=== PATIENT | male | born 1950 ===

== ENCOUNTER 2017-10-10 10:52 | Observation (INO) | payer OTHER, SELFPAY ==
[2017-10-10 10:53] VITALS: BMI 27.0
[2017-10-10] MEDS ORDERED: Sodium Chloride 0.9% 1,000 ML IV STA (11:19)
--- NOTE | 2017-10-10 11:28 | ED PDOC ---
HPI: General Adult Time Seen by Provider: 10/10/17 11:08 Chief Complaint (Nursing): Flu-like Symptoms Chief Complaint (Provider): Flu-like Symptoms History Per: Patient History/Exam Limitations: no limitations Onset/Duration Of Symptoms: Days Current Symptoms Are (Timing): Still Present Additional Complaint(s): 67 year old male presents to the emergency department with a complaint of a chest pain only when he coughs, sputum (white), fever, shortness of breath at night, congestion, runny nose, fever, sore throat, and body aches x2 days. Denies nausea, vomiting, diarrhea. Patient was diagnosed with Brugada syndrome before he had pacemaker placed. PMD: Dr. Alejandra SORENSON Past Medical History Reviewed: Historical Data, Nursing Documentation, Vital Signs Vital Signs: Last Vital Signs Temp 98 F 10/10/17 11:09 Pulse 86 10/10/17 11:09 Resp 18 10/10/17 11:09 BP 126/69 10/10/17 11:09 Pulse Ox 98 10/10/17 13:26 - Medical History PMH: Arthritis, Gastritis, Hypercholesterolemia, Chronic Kidney Disease (CKD), Rheumatoid Arthritis Denies: HIV, Malignancy (denies prostate ca) Other PMH: brugada syndrome - Surgical History Surgical History: Cholecystectomy - Family History Family History: States: Unknown Family Hx - Social History Current smoker - smoking cessation education provided: No Alcohol: None Drugs: Denies - Home Medications Home Medications: Ambulatory Orders Medication Instructions Recorded Finasteride [Proscar] 5 mg PO DAILY #0 tab 10/15/15 Ciprofloxacin HCl [Cipro] 500 mg PO BID #28 tablet 11/21/16 Lactobacillus Acidophilus [Bacid 1 cap PO BID #30 cap 11/21/16 Acidophilus] Tamsulosin [Flomax] 0.4 mg PO BID #60 cap 11/21/16 Phenazopyridine [Pyridium] 200 mg PO TID PRN #6 tab 04/20/17 - Allergies Allergies/Adverse Reactions: Allergies Allergy/AdvReac Type Severity Reaction Status Date / Time No Known Allergies Allergy Verified 10/01/14 13:25 Review of Systems ROS Statement: Except As Marked, All Systems Reviewed And Found Negative (As per HPI, otherwise negative) Constitutional: Positive for: Fever, Other (body aches) ENT: Positive for: Nose Discharge, Nose Congestion, Throat Pain Cardiovascular: Positive for: Chest Pain (due to cough) Respiratory: Positive for: Cough, Shortness of Breath (at night), Sputum (white) Gastrointestinal: Negative for: Nausea, Vomiting, Abdominal Pain, Diarrhea Physical Exam - Reviewed Nursing Documentation Reviewed: Yes Vital Signs Reviewed: Yes - Physical Exam Appears: Positive for: Non-toxic, No Acute Distress Head Exam: Positive for: NORMAL INSPECTION Skin: Positive for: Normal Color, Warm, Dry Eye Exam: Positive for: Normal appearance, EOMI, PERRL ENT: Positive for: Nasal Congestion Neck: Positive for: Normal, Painless ROM, Supple Cardiovascular/Chest: Positive for: Regular Rate, Rhythm, Chest Non Tender, Other (Pacemaker in place). Negative for: Murmur Respiratory: Positive for: Normal Breath Sounds. Negative for: Accessory Muscle Use, Wheezing, Respiratory Distress Gastrointestinal/Abdominal: Positive for: Normal Exam, Soft. Negative for: Tenderness Back: Positive for: Normal Inspection. Negative for: L CVA Tenderness, R CVA Tenderness Extremity: Positive for: Normal ROM. Negative for: Tenderness, Pedal Edema Neurologic/Psych: Positive for: Alert, Oriented (x3) - Laboratory Results Result Diagrams: 10/10/17 11:30 10/10/17 11:30 Interpretation Of Abn Labs: no acute - ECG ECG: Positive for: Interpreted By Me, Viewed By Me ECG Rhythm: Positive for: Normal QRS, Sinus Rhythm, Nonspecific Changes Interpretation Of Abn EKG: Similar old 11/19/16 O2 Sat by Pulse Oximetry: 98 (RA) Pulse Ox Interpretation: Normal - Radiology X-Ray: Interpreted by Me, Viewed By Me X-Ray Interpretation: No Acute Disease - Progress ED Course And Treament: 1151: Spoke with Dr. Cagle. He saw EKG and made aware of presentation. State not a code heart. Do further eval and tele obs. 1359: Stable. Spoke with Dr. Johnson. will admit tele obs. Pt. pain free. Medical Decision Making Medical Decision Making: Time: 1119 Initial Impression: Flu-like symptoms Initial Plan: --EKG --CMP --Troponin I --CBC w. diff --Chest Portable --Toradol 15 mg IVP --Sodium Chloride 1L IV --Influenza A B --Reevaluation Time: 1130 --Negative Influenza A B Scribe Attestation: Documented by Mayte Frost, acting as a scribe for Jesse Kauffman MD. Provider Scribe Attestation: All medical record entries made by the Scribe were at my direction and personally dictated by me. I have reviewed the chart and agree that the record accurately reflects my personal performance of the history, physical exam, medical decision making, and the department course for this patient. I have also personally directed, reviewed, and agree with the discharge instructions and disposition. Disposition - Clinical Impression Clinical Impression: Acute electrocardiogram changes, URI (upper respiratory infection) - Patient ED Disposition Is Patient to be Admitted: Yes Counseled Patient/Family Regarding: Studies Performed, Diagnosis - Disposition Disposition Time: 14:00 Condition: FAIR - Pt Status Changed To: Hospital Disposition Of: Observation - POA Present On Arrival: None
[2017-10-10 12:12] LABS: ALB/GLOB RATIO 1.4 (1.0-2.1); ALBUMIN 4.2 g/dL (3.5-5.0); ALT/SGPT 44 U/L (21-72); AST/SGOT 33 U/L (17-59); BLOOD UREA NITROGEN 13 mg/dl (9-20); CALCIUM 9.4 mg/dL (8.4-10.2); GFR AFRICAN-AMERICAN > 60; GFR NON-AFRICAN AMERICAN > 60
[2017-10-10 12:21] LABS: BASO % 0.7 % (0.0-2.0); EOS # 0.2 K/uL (0.0-0.7); HEMOGLOBIN 14.1 g/dL (12.0-18.0); LYMPH # 0.6 K/uL (1.0-4.3); LYMPH % 8.5 % (20.0-40.0); MEAN CELL VOLUME 96.9 fl (80.0-94.0); MEAN CORPUSCULAR HEMOGLOBIN 32.1 pg (27.0-31.0); MEAN CORPUSCULAR HGB CONC 33.1 g/dL (33.0-37.0); MEAN PLATELET VOLUME 10.1 fl (7.2-11.7); MONO # 0.6 K/uL (0.0-0.8); MONO % 8.3 % (0.0-10.0); NEUT # 5.5 K/uL (1.8-7.0); NEUT % 79.5 % (50.0-75.0); NRBC % 0.1 % (0.0-0.0); PLATELET COUNT 154 K/uL (130-400); RBC 4.39 Mil/uL (4.40-5.90); RED CELL DISTRIBUTION WIDTH 12.8 % (11.5-14.5); WHITE BLOOD COUNT 6.9 K/uL (4.8-10.8)
[2017-10-10 13:23] LABS: BANDS 4 % (0-2); EOSINOPHIL 6 % (0-7); LYMPHOCYTE 15 % (20-50); MONOCYTE 10 % (0-10); NEUTROPHIL 65 % (42-75); TOTAL CELLS COUNTED 100
[2017-10-10 13:24] LABS: PLATELET ESTIMATE NORMAL (NORMAL)
[2017-10-10] MEDS ORDERED: Aspirin 325 mg EC Tablets PO ONE (14:36)
--- NOTE | 2017-10-10 15:17 | RAD ---
HISTORY: dyspnea COMPARISON: Comparison chest dated 10/13/2015 FINDINGS: LUNGS: Mild bibasilar atelectasis PLEURA: No significant pleural effusion identified, no pneumothorax apparent. CARDIOVASCULAR: Interval placement single lead pacemaker/ defibrillator. OSSEOUS STRUCTURES: No significant abnormalities. VISUALIZED UPPER ABDOMEN: Normal. OTHER FINDINGS: None. IMPRESSION: Mild bibasilar atelectasis Interval placement single lead pacemaker/defibrillator
--- NOTE | 2017-10-10 15:18 | CP.PCM.HP ---
History of Present Illness - History of Present Illness History of Present Illness: 67 yo male with history of Brugada syndrome (internal defibrillator inserted last year) brought by daughter because of cough productive with white sputum associated with chest pain and body malaise since yesterday. Admitted feeling febrile yesterday Present on Admission - Present on Admission Any Indicators Present on Admission: No History of DVT/PE: No History of Uncontrolled Diabetes: No Urinary Catheter: No Decubitus Ulcer Present: No Review of Systems - Review of Systems All systems: reviewed and no additional remarkable complaints except (aside from those mentioned above, 12 point system review were negative by me) Past Patient History - Infectious Disease Hx of Infectious Diseases: None - Tetanus Immunizations Tetanus Immunization: Unknown - Past Medical History & Family History Past Medical History?: Yes - Past Social History Smoking Status: Never Smoked Alcohol: None Drugs: Denies Home Situation {Lives}: With Family - CARDIAC Hx Cardia Arrhythmia: Yes Hx Hypercholesterolemia: Yes Hx Internal Defibrillator: Yes - PULMONARY Hx Respiratory Disorders: No - NEUROLOGICAL Hx Neurological Disorder: No - HEENT Hx HEENT Problems: No Other/Comment: Use Eyeglasses - RENAL Hx Chronic Kidney Disease: No - ENDOCRINE/METABOLIC Hx Endocrine Disorders: No - HEMATOLOGICAL/ONCOLOGICAL Hx Human Immunodeficiency Virus (HIV): No - INTEGUMENTARY Hx Dermatological Problems: No Other/Comment: hives notes to the right upper head - MUSCULOSKELETAL/RHEUMATOLOGICAL Hx Arthritis: Yes Hx Rheumatoid Arthritis: Yes - GASTROINTESTINAL Hx Gastritis: Yes - GENITOURINARY/GYNECOLOGICAL Hx Genitourinary Disorders: Yes (BPH, UTIs) Hx Prostate Problems: Yes - PSYCHIATRIC Hx Psychophysiologic Disorder: No Hx Substance Use: No - SURGICAL HISTORY Hx Surgeries: Yes Hx Cholecystectomy: Yes - ANESTHESIA Hx Anesthesia: Yes Hx Anesthesia Reactions: No Hx Malignant Hyperthermia: No Meds Allergies/Adverse Reactions: Allergies Allergy/AdvReac Type Severity Reaction Status Date / Time No Known Allergies Allergy Verified 10/01/14 13:25 Physical Exam - Constitutional Appears: No Acute Distress - Head Exam Head Exam: ATRAUMATIC - Eye Exam Eye Exam: absent: Scleral icterus - ENT Exam ENT Exam: Mucous Membranes Moist - Neck Exam Neck exam: Negative for: Meningismus - Respiratory Exam Respiratory Exam: absent: Rhonchi, Wheezes, Respiratory Distress - Cardiovascular Exam Cardiovascular Exam: REGULAR RHYTHM, +S1, +S2 - GI/Abdominal Exam GI & Abdominal Exam: Soft. absent: Tenderness - Rectal Exam Rectal Exam: Deferred - Extremities Exam Extremities exam: Positive for: pedal pulses present. Negative for: pedal edema - Back Exam Back exam: absent: tenderness - Neurological Exam Neurological exam: Alert, Oriented x3 - Psychiatric Exam Psychiatric exam: Normal Affect - Skin Skin Exam: Dry, Intact Results - Vital Signs Recent Vital Signs: Last Vital Signs Temp 98 F 10/10/17 11:09 Pulse 84 10/10/17 14:31 Resp 18 10/10/17 14:31 BP 128/75 10/10/17 14:31 Pulse Ox 98 10/10/17 14:31 - Labs Result Diagrams: 10/10/17 11:30 10/10/17 11:30 Labs: Laboratory Results - last 24 hr 10/10/17 10/10/17 10/10/17 11:30 11:30 11:30 WBC 6.9 RBC 4.39 L Hgb 14.1 Hct 42.6 MCV 96.9 H D MCH 32.1 H MCHC 33.1 RDW 12.8 Plt Count 154 MPV 10.1 Neut % (Auto) 79.5 H Lymph % (Auto) 8.5 L [place] % (Auto) 8.3 Eos % (Auto) 3.0 Baso % (Auto) 0.7 Neut # 5.5 Lymph # 0.6 L [place] # 0.6 Eos # 0.2 Baso # 0.0 Neutrophils % (Manual) 65 Band Neutrophils % 4 H Lymphocytes % (Manual) 15 L Monocytes % (Manual) 10 Eosinophils % (Manual) 6 Platelet Estimate Normal Sodium 143 Potassium 4.1 Chloride 105 Carbon Dioxide 24 Anion Gap 18 BUN 13 Creatinine 0.7 L Est GFR ( Amer) > 60 Est GFR (Non-Af Amer) > 60 Random Glucose 108 Calcium 9.4 Total Bilirubin 1.0 AST 33 ALT 44 Alkaline Phosphatase 76 Troponin I < 0.0120 Total Protein 7.2 Albumin 4.2 Globulin 3.0 Albumin/Globulin Ratio 1.4 Influenza Typ A,B (EIA) Pos for influenza a H Assessment & Plan - Assessment and Plan (Free Text) Assessment: 67 yo male with history of Brugada syndrome (internal defibrillator inserted last year) brought in by daughter because of cough productive with white sputum associated with chest pain and body malaise since yesterday. Admitted feeling febrile yesterday. 1. Influenza positive for influenza continue IV hydration and Tylenol for symptomatic relief of pain and fever continue Tamiflu 75mg PO bid for a total of 5 days 2. Brugada syndrom asymptomatic Metoprolol tartrate 25mg PO daily 3. Chest Pain Troponin: negative
[2017-10-10] MEDS: Sodium Chloride 0.9% 1,000 ML IV SCH (16:33)
[2017-10-11] MEDS: guaiFENesin 100 mg/5 ml Syrup UD PO PRN ×2 (00:27→06:16)
[2017-10-11] MEDS: Sodium Chloride 0.9% 1,000 ML IV SCH (06:18)
[2017-10-11 06:52] LABS: BASO % 0.4 % (0.0-2.0); EOS # 0.1 K/uL (0.0-0.7); EOS % 1.4 % (0.0-4.0); HEMOGLOBIN 13.2 g/dL (12.0-18.0); LYMPH # 0.5 K/uL (1.0-4.3); LYMPH % 7.8 % (20.0-40.0); MEAN CELL VOLUME 96.4 fl (80.0-94.0); MEAN CORPUSCULAR HEMOGLOBIN 32.2 pg (27.0-31.0); MEAN CORPUSCULAR HGB CONC 33.4 g/dL (33.0-37.0); MEAN PLATELET VOLUME 9.6 fl (7.2-11.7); MONO # 0.6 K/uL (0.0-0.8); MONO % 9.6 % (0.0-10.0); NEUT # 5.4 K/uL (1.8-7.0); NEUT % 80.8 % (50.0-75.0); RBC 4.11 Mil/uL (4.40-5.90); RED CELL DISTRIBUTION WIDTH 12.9 % (11.5-14.5); WHITE BLOOD COUNT 6.6 K/uL (4.8-10.8)
[2017-10-11 07:06] LABS: BLOOD UREA NITROGEN 11 mg/dl (9-20); CALCIUM 8.5 mg/dL (8.4-10.2); GFR AFRICAN-AMERICAN > 60; GFR NON-AFRICAN AMERICAN > 60; HDL CHOLESTEROL 35 MG/DL (30-70)
[2017-10-11 07:22] LABS: LDL CHOLESTEROL 60 mg/dL (0-129)
[2017-10-11 08:32] VITALS: RESP 18
[2017-10-11] MEDS ORDERED: Pantoprazole 40 mg EC Tab PO SCH (09:00)
[2017-10-11] MEDS ORDERED: Enoxaparin 40 mg Syringe SC SCH (09:00)
--- NOTE | 2017-10-11 11:15 | CP.PCM.DIS ---
Provider - Provider Date of Admission: 10/10/17 14:00 Attending physician: Evens Johnson MD Time Spent in preparation of Discharge (in minutes): 25 Diagnosis - Discharge Diagnosis (1) Influenza Status: Acute Comment: felt better. continue Tamiflu PO BID for another 4 days. continue droplet precaution by using face mask (2) Acute electrocardiography changes Status: Acute Comment: serial Troponins were negative and patient presently any symptoms Hospital Course - Lab Results Lab Results: Most Recent Lab Values WBC 6.6 K/uL (4.8-10.8) 10/11/17 06:00 RBC 4.11 Mil/uL (4.40-5.90) L 10/11/17 06:00 Hgb 13.2 g/dL (12.0-18.0) 10/11/17 06:00 Hct 39.6 % (35.0-51.0) 10/11/17 06:00 MCV 96.4 fl (80.0-94.0) H 10/11/17 06:00 MCH 32.2 pg (27.0-31.0) H 10/11/17 06:00 MCHC 33.4 g/dL (33.0-37.0) 10/11/17 06:00 RDW 12.9 % (11.5-14.5) 10/11/17 06:00 Plt Count 134 K/uL (130-400) 10/11/17 06:00 MPV 9.6 fl (7.2-11.7) 10/11/17 06:00 Neut % (Auto) 80.8 % (50.0-75.0) H 10/11/17 06:00 Lymph % (Auto) 7.8 % (20.0-40.0) L 10/11/17 06:00 [place] % (Auto) 9.6 % (0.0-10.0) 10/11/17 06:00 Eos % (Auto) 1.4 % (0.0-4.0) 10/11/17 06:00 Baso % (Auto) 0.4 % (0.0-2.0) 10/11/17 06:00 Neut # 5.4 K/uL (1.8-7.0) 10/11/17 06:00 Lymph # 0.5 K/uL (1.0-4.3) L 10/11/17 06:00 [place] # 0.6 K/uL (0.0-0.8) 10/11/17 06:00 Eos # 0.1 K/uL (0.0-0.7) 10/11/17 06:00 Baso # 0.0 K/uL (0.0-0.2) 10/11/17 06:00 Neutrophils % (Manual) 65 % (42-75) 10/10/17 11:30 Band Neutrophils % 4 % (0-2) H 10/10/17 11:30 Lymphocytes % (Manual) 15 % (20-50) L 10/10/17 11:30 Monocytes % (Manual) 10 % (0-10) 10/10/17 11:30 Eosinophils % (Manual) 6 % (0-7) 10/10/17 11:30 Platelet Estimate Normal (NORMAL) 10/10/17 11:30 Sodium 139 mmol/l (132-148) 10/11/17 06:30 Potassium 3.7 MMOL/L (3.6-5.0) 10/11/17 06:30 Chloride 105 mmol/L (98-107) 10/11/17 06:30 Carbon Dioxide 25 mmol/L (22-30) 10/11/17 06:30 Anion Gap 13 (10-20) 10/11/17 06:30 BUN 11 mg/dl (9-20) 10/11/17 06:30 Creatinine 0.7 mg/dl (0.8-1.5) L 10/11/17 06:30 Est GFR ( Amer) > 60 10/11/17 06:30 Est GFR (Non-Af Amer) > 60 10/11/17 06:30 Random Glucose 106 mg/dL (75-110) 10/11/17 06:30 Calcium 8.5 mg/dL (8.4-10.2) 10/11/17 06:30 Total Bilirubin 1.0 mg/dl (0.2-1.3) 10/10/17 11:30 AST 33 U/L (17-59) 10/10/17 11:30 ALT 44 U/L (21-72) 10/10/17 11:30 Alkaline Phosphatase 76 U/L (38-126) 10/10/17 11:30 Troponin I < 0.0120 ng/mL (0.00-0.120) 10/11/17 06:30 Total Protein 7.2 G/DL (6.3-8.2) 10/10/17 11:30 Albumin 4.2 g/dL (3.5-5.0) 10/10/17 11:30 Globulin 3.0 gm/dL (2.2-3.9) 10/10/17 11:30 Albumin/Globulin Ratio 1.4 (1.0-2.1) 10/10/17 11:30 Triglycerides 88 mg/DL (0-149) D 10/11/17 06:30 Cholesterol 125 mg/dL (0-199) 10/11/17 06:30 LDL Cholesterol Direct 60 mg/dL (0-129) 10/11/17 06:30 HDL Cholesterol 35 MG/DL (30-70) 10/11/17 06:30 Influenza Typ A,B (EIA) Pos for influenza a (NEGATIVE) H 10/10/17 11:30 - Hospital Course Hospital Course: 67 yo male with history of Brugada syndrome (internal defibrillator inserted last year) brought by daughter because of cough productive with white sputum associated with chest pain and body malaise. Found to be suffering from Influenza and was then started on Tamiflu PO BID. Presently felt much better and discharged in stable condition. Discharge Exam - Head Exam Head Exam: ATRAUMATIC - Eye Exam Eye Exam: absent: Scleral icterus - ENT Exam ENT Exam: Mucous Membranes Moist - Respiratory Exam Respiratory Exam: NORMAL BREATHING PATTERN. absent: Wheezes, Respiratory Distress - Cardiovascular Exam Cardiovascular Exam: REGULAR RHYTHM, +S1, +S2 - GI/Abdominal Exam GI & Abdominal Exam: Soft. absent: Tenderness - Rectal Exam Rectal Exam: Deferred - Back Exam Back exam: absent: tenderness - Neurological Exam Neurological exam: Alert, Oriented x3 - Psychiatric Exam Psychiatric exam: Normal Affect - Skin Skin Exam: Dry, Intact Discharge Plan - Discharge Medications Prescriptions: Oseltamivir [Tamiflu Cap] 75 mg PO BID #8 cap - Follow Up Plan Condition: FAIR Disposition: HOME/ ROUTINE
[2017-10-11 12:24] VITALS: BP 95/59; PULSE 75; TEMP 98.2; O2SAT 95
[2017-10-11] MEDS ORDERED: guaiFENesin DM 200 mg-20 mg/10 ml UD PO PRN (13:52)
== END 2017-10-11 15:00 | disposition home or self-care (01) ==
LOC: H.ER 10:52 → H.ERHOLD 14:00 → H.TEL 21:25
DX: J11.1 Influenza due to unidentified influenza virus with other respiratory manifestations (principal); M06.9 Rheumatoid arthritis, unspecified; N18.9 Chronic kidney disease, unspecified; N40.0 Benign prostatic hyperplasia without lower urinary tract symptoms; Z90.49 Acquired absence of other specified parts of digestive tract; K29.70 Gastritis, unspecified, without bleeding; M19.90 Unspecified osteoarthritis, unspecified site; E78.00 Pure hypercholesterolemia, unspecified; I49.8 Other specified cardiac arrhythmias; Z95.810 Presence of automatic (implantable) cardiac defibrillator
CPT/HCPCS: 36415; 71045; 80048; 80053; 80061; 84484; 85025; 87804; 96374; 99285; G0378; J1650; J1885; J7040

== ENCOUNTER 2017-12-01 21:52 | Inpatient (IN) | payer OTHER, SELFPAY ==
[2017-12-01 21:53] VITALS: BMI 27.0
[2017-12-01] MEDS ORDERED: Sodium Chloride 0.9% 1,000 ML IV STA (22:28)
--- NOTE | 2017-12-01 22:47 | ED PDOC ---
HPI: General Adult Time Seen by Provider: 12/01/17 22:13 Chief Complaint (Nursing): Abdominal Pain Chief Complaint (Provider): dysuria, chills History Per: Patient, Ordnance Officer (family/indemand) History/Exam Limitations: no limitations Onset/Duration Of Symptoms: Days (1), Sudden Onset Current Symptoms Are (Timing): Still Present Severity: Moderate Location Of Discomfort (Image): 1 - discomfort Additional Complaint(s): 67yo male hx prostatic enlargement and prior UTIs ESBL per prior charts presents c/o dysuria, fever/chills and generalized weakness since this morning. States he took penicillin today [place] from [place]. Past Medical History Vital Signs: Last Vital Signs Temp 100.1 F H 12/02/17 00:10 Pulse 90 12/02/17 00:10 Resp 20 12/02/17 00:10 BP 130/75 12/02/17 00:10 Pulse Ox 100 12/02/17 00:10 - Medical History PMH: Arthritis, Cardia Arrhythmia, Gastritis, HTN, Hypercholesterolemia, Rheumatoid Arthritis Denies: HIV, Malignancy (denies prostate ca), Chronic Kidney Disease - Surgical History Surgical History: Cholecystectomy - Family History Family History: States: Unknown Family Hx - Home Medications Home Medications: Ambulatory Orders Medication Instructions Recorded Finasteride [Proscar] 5 mg PO DAILY 10/10/17 Metoprolol Tartrate [Lopressor] 25 mg PO DAILY 10/10/17 Tamsulosin [Flomax] 0.4 mg PO BID 10/10/17 Oseltamivir [Tamiflu Cap] 75 mg PO BID #8 cap 10/11/17 - Allergies Allergies/Adverse Reactions: Allergies Allergy/AdvReac Type Severity Reaction Status Date / Time No Known Allergies Allergy Verified 10/01/14 13:25 - Laboratory Results Result Diagrams: 12/01/17 23:35 12/01/17 22:50 - ECG ECG: Positive for: Interpreted By Me ECG Rhythm: Positive for: Sinus Rhythm, ST/T Changes Interpretation Of ECG: ST elevation V1V2. no reciprocal changes exact same morphology to 2 prior EKGS from 1/18 and prior. Hx brugada with defibrillator follows at [facility] for cardiology denies chest pain Rate: 87 O2 Sat by Pulse Oximetry: 98 Pulse Ox Interpretation: Normal Medical Decision Making Medical Decision Making: workup for UTI w possible sepsis initiated low grade temp in ED prior Ucx GBS from 2017 labs reviewed, +elev WBC lactate normal UA ++WBC/nitrate Rocephin initiated after cultures obtained IVF bolus, tylenol Admit Obs Dr Smart hospitalist given low grade fever, leukocytosis, UTI/ prostatitis Disposition - Clinical Impression Clinical Impression: UTI (urinary tract infection), Sepsis - Patient ED Disposition Is Patient to be Admitted: No Counseled Patient/Family Regarding: Studies Performed, Diagnosis - Disposition Disposition Time: 11:50 Condition: FAIR Forms: [place] (Romansh) - Pt Status Changed To: Hospital Disposition Of: Observation
[2017-12-01 23:00] LABS: VENOUS BLOOD GAS BASE EXCESS 1.7 mmol/L (0.0-2.0); VENOUS BLOOD GAS PCO2 42 mmHg (40-60); VENOUS BLOOD GAS PO2 37 mm/Hg (30-55); VENOUS BLOOD PH 7.41 (7.32-7.43)
[2017-12-01 23:03] LABS: BASO # 0.1 K/uL (0.0-0.2); EOS # 0.1 K/uL (0.0-0.7); EOS % 0.8 % (0.0-4.0); HEMOGLOBIN 14.7 g/dL (12.0-18.0); LYMPH # 1.1 K/uL (1.0-4.3); MEAN CELL VOLUME 96.7 fl (80.0-94.0); MEAN CORPUSCULAR HEMOGLOBIN 32.8 pg (27.0-31.0); MEAN CORPUSCULAR HGB CONC 33.9 g/dL (33.0-37.0); MEAN PLATELET VOLUME 9.9 fl (7.2-11.7); MONO # 0.8 K/uL (0.0-0.8); MONO % 5.9 % (0.0-10.0); NEUT # 11.9 K/uL (1.8-7.0); NEUT % 84.3 % (50.0-75.0); PLATELET COUNT 159 K/uL (130-400); RBC 4.49 Mil/uL (4.40-5.90); RED CELL DISTRIBUTION WIDTH 12.7 % (11.5-14.5); WHITE BLOOD COUNT 14.1 K/uL (4.8-10.8)
[2017-12-01 23:08] LABS: SQUAMOUS EPITHIAL 1 /hpf (0-5); URINE BACTERIA OCC (<OCC); URINE BILIRUBIN NEGATIVE (NEGATIVE); URINE BLOOD MODERATE (NEGATIVE); URINE CLARITY CLOUDY (Clear); URINE GLUCOSE (UA) 50 mg/dL (Normal); URINE LEUKOCYTE ESTERASE LARGE Leu/uL (Negative); URINE PROTEIN 30 mg/dL (NEGATIVE); WBC CLUMPS RARE /hpf
[2017-12-01 23:11] LABS: URINE COLOR DARK YELLOW (YELLOW)
[2017-12-01 23:12] LABS: ALB/GLOB RATIO 1.3 (1.0-2.1); ALBUMIN 4.1 g/dL (3.5-5.0); ALT/SGPT 38 U/L (21-72); AST/SGOT 25 U/L (17-59); BLOOD UREA NITROGEN 22 mg/dl (9-20); CALCIUM 9.2 mg/dL (8.4-10.2); GFR AFRICAN-AMERICAN > 60; GFR NON-AFRICAN AMERICAN > 60
[2017-12-01 23:22] LABS: PARTIAL THROMBOPLASTIN TIME 30.8 Seconds (25.6-37.1); PROTHROMBIN TIME 10.9 Seconds (9.8-13.1)
[2017-12-02] MEDS ORDERED: cefTRIAXone (Rocephin) 1 gm Inj ONE (00:15)
--- NOTE | 2017-12-02 00:48 | CP.PCM.HP ---
History of Present Illness - History of Present Illness History of Present Illness: CC: fever, dysuria HPI: This is a 67 y/o male with BPH with recurrent prostatitis and UTIs who comes in with dysuria and fever. Per patient symptoms started 2 weeks ago with some blank/LB pain. He did have urinary hesitancy and frequency as well as urinating at night. These symptoms worsened to burning and hematuria. He also noted tactile fever this AM with chills. Denies CP/SOB/n/v/d. He took Aleve and some preparation of PCN from his home country to treat himself. Patient has had to be treated with Meropenem for ESBL rest. bacteria in urine in the past. PCP: [facility] MHx: BPH, recurrent prostatitis and UTI SHx: None Allergies: NKDA Medications: As per med rec Family Hx: reviewed, no relevant findings Social Hx: Lives with family, no significant tobacco or EtOH Present on Admission - Present on Admission Any Indicators Present on Admission: No Past Patient History - Infectious Disease Hx of Infectious Diseases: None - Tetanus Immunizations Tetanus Immunization: Unknown - Past Medical History & Family History Past Medical History?: Yes - Past Social History Smoking Status: Never Smoked - CARDIAC Hx Cardia Arrhythmia: Yes Hx Hypercholesterolemia: Yes Hx Hypertension: Yes - PULMONARY Hx Respiratory Disorders: No - NEUROLOGICAL Hx Neurological Disorder: No - HEENT Hx HEENT Problems: No Other/Comment: [place] R ear - RENAL Hx Chronic Kidney Disease: No - ENDOCRINE/METABOLIC Hx Endocrine Disorders: No - HEMATOLOGICAL/ONCOLOGICAL Hx Human Immunodeficiency Virus (HIV): No - INTEGUMENTARY Hx Dermatological Problems: No - MUSCULOSKELETAL/RHEUMATOLOGICAL Hx Arthritis: Yes Hx Rheumatoid Arthritis: Yes - GASTROINTESTINAL Hx Gastritis: Yes - GENITOURINARY/GYNECOLOGICAL Hx Genitourinary Disorders: Yes (BPH, UTIs) Hx Prostate Problems: Yes Hx Urinary Tract Infection: Yes - PSYCHIATRIC Hx Psychophysiologic Disorder: No Hx Substance Use: No - SURGICAL HISTORY Hx Cholecystectomy: Yes - ANESTHESIA Hx Anesthesia: Yes Hx Anesthesia Reactions: No Hx Malignant Hyperthermia: No Meds Allergies/Adverse Reactions: Allergies Allergy/AdvReac Type Severity Reaction Status Date / Time No Known Allergies Allergy Verified 10/01/14 13:25 Physical Exam - Constitutional Appears: No Acute Distress - Head Exam Head Exam: ATRAUMATIC, NORMOCEPHALIC - Eye Exam Eye Exam: EOMI, PERRL - ENT Exam ENT Exam: Mucous Membranes Moist - Respiratory Exam Respiratory Exam: Clear to Auscultation Bilateral, NORMAL BREATHING PATTERN - Cardiovascular Exam Cardiovascular Exam: REGULAR RHYTHM, +S1, +S2 - GI/Abdominal Exam GI & Abdominal Exam: Normal Bowel Sounds, Soft, Tenderness Additional comments: suprapubic tenderness - Extremities Exam Extremities exam: Positive for: full ROM, normal inspection - Neurological Exam Neurological exam: Alert, CN II-XII Intact, Oriented x3 - Psychiatric Exam Psychiatric exam: Normal Affect, Normal Mood - Skin Skin Exam: Dry, Warm Results - Vital Signs Recent Vital Signs: Last Vital Signs Temp 100.1 F H 12/02/17 00:10 Pulse 87 12/02/17 00:47 Resp 20 12/02/17 00:10 BP 130/75 12/02/17 00:10 Pulse Ox 98 12/02/17 00:47 - Labs Result Diagrams: 12/01/17 23:35 12/01/17 22:50 Labs: Laboratory Results - last 24 hr 12/01/17 12/01/17 12/01/17 22:50 22:50 22:50 WBC RBC Hgb Hct MCV MCH MCHC RDW Plt Count MPV Neut % (Auto) Lymph % (Auto) [place] % (Auto) Eos % (Auto) Baso % (Auto) Neut # (Auto) Lymph # (Auto) [place] # (Auto) Eos # (Auto) Baso # (Auto) PT 10.9 INR 1.0 APTT 30.8 pO2 VBG pH VBG pCO2 VBG HCO3 VBG Total CO2 VBG O2 Sat (Calc) VBG Base Excess VBG Potassium Glucose Lactate FiO2 Sodium 144 Potassium 3.6 Chloride 102 Carbon Dioxide 26 Anion Gap 20 BUN 22 H Creatinine 0.8 Est GFR ( Amer) > 60 Est GFR (Non-Af Amer) > 60 Random Glucose 119 H Calcium 9.2 Phosphorus 3.4 Magnesium 2.1 Total Bilirubin 0.7 AST 25 ALT 38 Alkaline Phosphatase 81 Total Protein 7.2 Albumin 4.1 Globulin 3.1 Albumin/Globulin Ratio 1.3 Venous Blood Potassium Urine Color Dark yellow Urine Clarity Cloudy Urine pH 7.0 Ur Specific [place] 1.020 Urine Protein 30 Urine Glucose (UA) 50 Urine Ketones Negative Urine Blood Moderate Urine Nitrate Positive H Urine Bilirubin Negative Urine Urobilinogen 4.0 Ur Leukocyte Esterase Large Urine RBC (Auto) 119 H Urine WBC Clumps (Auto) Rare H Urine Microscopic WBC 344 H Ur Squamous Epith Cells 1 Urine Bacteria Occ H 12/01/17 12/01/17 22:56 23:35 WBC 14.1 H D RBC 4.49 Hgb 14.7 Hct 43.4 MCV 96.7 H MCH 32.8 H MCHC 33.9 RDW 12.7 Plt Count 159 MPV 9.9 Neut % (Auto) 84.3 H Lymph % (Auto) 8.0 L [place] % (Auto) 5.9 Eos % (Auto) 0.8 Baso % (Auto) 1.0 Neut # (Auto) 11.9 H Lymph # (Auto) 1.1 [place] # (Auto) 0.8 Eos # (Auto) 0.1 Baso # (Auto) 0.1 PT INR APTT pO2 37 VBG pH 7.41 VBG pCO2 42 VBG HCO3 25.5 VBG Total CO2 27.9 VBG O2 Sat (Calc) 76.6 H VBG Base Excess 1.7 VBG Potassium 3.4 L Glucose 117 H Lactate 1.2 FiO2 21.0 Sodium 137.0 Potassium Chloride 105.0 Carbon Dioxide Anion Gap BUN Creatinine Est GFR ( Amer) Est GFR (Non-Af Amer) Random Glucose Calcium Phosphorus Magnesium Total Bilirubin AST ALT Alkaline Phosphatase Total Protein Albumin Globulin Albumin/Globulin Ratio Venous Blood Potassium 3.4 L Urine Color Urine Clarity Urine pH Ur Specific [place] Urine Protein Urine Glucose (UA) Urine Ketones Urine Blood Urine Nitrate Urine Bilirubin Urine Urobilinogen Ur Leukocyte Esterase Urine RBC (Auto) Urine WBC Clumps (Auto) Urine Microscopic WBC Ur Squamous Epith Cells Urine Bacteria - Imaging and Cardiology Chest x-ray Status: Image reviewed by me (ICD in place, otherwise no significant findings) Assessment & Plan (1) BPH with obstruction/lower urinary tract symptoms Assessment and Plan: 67 y/o male with recurrent prostatitis/UTI as well as sepsis; ? ESBL in past. -Admit med surg -Cont Ceftriaxone IV -Tylenol for pain/fever; pyridium 100 tid for dysuria -IVF -f/u UCx to make sure not ESBL Resistant organism; consider ID consult -SCDs for DVT PPx Status: Acute (2) Acute prostatitis Status: Acute (3) Sepsis Status: Acute (4) DVT prophylaxis Status: Acute
[2017-12-02 04:09] LABS: ANISOCYTOSIS SLIGHT; BANDS 4 % (0-2); LYMPHOCYTE 5 % (20-50); MONOCYTE 5 % (0-10); NEUTROPHIL 86 % (42-75); PLATELET ESTIMATE NORMAL (NORMAL); TOTAL CELLS COUNTED 100
[2017-12-02 06:33] LABS: HEMOGLOBIN 13.7 g/dL (12.0-18.0); MEAN CORPUSCULAR HGB CONC 34.4 g/dL (33.0-37.0); RBC 4.17 Mil/uL (4.40-5.90); RED CELL DISTRIBUTION WIDTH 12.8 % (11.5-14.5); WHITE BLOOD COUNT 18.6 K/uL (4.8-10.8)
[2017-12-02 07:11] LABS: BLOOD UREA NITROGEN 18 mg/dl (9-20); CALCIUM 8.7 mg/dL (8.4-10.2); GFR AFRICAN-AMERICAN > 60; GFR NON-AFRICAN AMERICAN > 60
[2017-12-02] MEDS ORDERED: Influenza Vaccine 18yr & older 0.5 ML/45 MCG SYR IM ONE (09:00)
[2017-12-02] MEDS ORDERED: Meropenem 1 GM in Sodium Chloride 0.9% 100 ML IVPB ONE (09:00)
[2017-12-02] MEDS ORDERED: Potassium Chloride 20 mEq ER Tab PO ONE (09:00)
--- NOTE | 2017-12-02 11:39 | RAD ---
HISTORY: Sepsis Patient COMPARISON: Portable chest 10/10/2017. FINDINGS: Pacemaker/AICD again evident. LUNGS: No active pulmonary disease. PLEURA: No significant pleural effusion identified, no pneumothorax apparent. CARDIOVASCULAR: Normal. OSSEOUS STRUCTURES: No significant abnormalities. VISUALIZED UPPER ABDOMEN: Normal. OTHER FINDINGS: None. IMPRESSION: No active disease.
--- NOTE | 2017-12-02 11:39 | CARD ---
APPROVED REPORT EKG Measurement Heart [id number] <Conclusion> Sinus rhythm with premature supraventricular complexes ST elevations in leads V1 and V2 Abnormal ECG Note: This EKG is unchanged from the 10/10/17 EKG
--- NOTE | 2017-12-02 13:19 | CP.PCM.PN ---
Subjective - Date & Time of Evaluation Date of Evaluation: 12/02/17 Time of Evaluation: 13:17 - Subjective Subjective: I D NOTE PATIENT ADMITTED C PROSTATIS POSSIBLE HISTORY OF ESBL POS GRAM NEG INFECTION WBC INCREASED TO 18 OVERNIGHT DESPITE RX C ROCEPHEN DISCUSSED C AND HAVE STARTED MEROPENEM WE AWAIT CULTURE RESULTS Objective - Vital Signs/Intake and Output Vital Signs (last 24 hours): Temp Pulse Resp BP Pulse Ox 97.9 F 86 18 104/57 L 96 12/02/17 07:43 12/02/17 07:43 12/02/17 07:43 12/02/17 11:44 12/02/17 07:43 - Medications Medications: Current Medications Acetaminophen (Tylenol 325mg Tab) 650 mg PO Q6 PRN PRN Reason: Pain, Mild (1-3) Last Admin: 12/02/17 12:21 Dose: 650 mg Acetaminophen (Tylenol 325mg Tab) 650 mg PO Q6 PRN PRN Reason: Fever >100.4 F Finasteride (Proscar) 5 mg PO DAILY [facility] Last Admin: 12/02/17 08:48 Dose: 5 mg Ceftriaxone Sodium 1 gm/ (Dextrose) 100 mls @ 100 mls/hr IVPB DAILY [facility] PRN Reason: Protocol Last Admin: 12/02/17 08:47 Dose: 100 mls/hr Meropenem 1 gm/ Sodium (Chloride) 100 mls @ 100 mls/hr IVPB Q8 DERICK PRN Reason: Protocol Metoprolol Tartrate (Lopressor) 25 mg PO DAILY [facility] Phenazopyridine HCl (Pyridium) 100 mg PO TID [facility] Stop: 12/03/17 17:01 Last Admin: 12/02/17 08:48 Dose: 100 mg Tamsulosin HCl (Flomax) 0.4 mg PO BID [facility] Last Admin: 12/02/17 08:48 Dose: 0.4 mg Tramadol HCl (Ultram) 50 mg PO Q6 PRN PRN Reason: Pain, moderate (4-7) - Labs Labs: 12/02/17 05:35 12/02/17 05:35 PT 10.9 Seconds (9.8-13.1) 12/01/17 22:50 INR 1.0 (0.9-1.2) 12/01/17 22:50 APTT 30.8 Seconds (25.6-37.1) 12/01/17 22:50
[2017-12-03] MEDS: Meropenem 1 GM in Sodium Chloride 0.9% 100 ML IVPB SCH ×3 (00:15→17:27)
[2017-12-03 07:08] LABS: BASO # 0.1 K/uL (0.0-0.2); BASO % 0.4 % (0.0-2.0); EOS % 0.2 % (0.0-4.0); HEMOGLOBIN 13.6 g/dL (12.0-18.0); LYMPH # 1.3 K/uL (1.0-4.3); MEAN CELL VOLUME 96.3 fl (80.0-94.0); MEAN CORPUSCULAR HGB CONC 34.3 g/dL (33.0-37.0); MEAN PLATELET VOLUME 9.9 fl (7.2-11.7); MONO % 5.5 % (0.0-10.0); NEUT # 15.8 K/uL (1.8-7.0); NEUT % 86.9 % (50.0-75.0); RBC 4.12 Mil/uL (4.40-5.90); WHITE BLOOD COUNT 18.2 K/uL (4.8-10.8)
[2017-12-03 07:21] LABS: BLOOD UREA NITROGEN 14 mg/dl (9-20); CALCIUM 8.7 mg/dL (8.4-10.2); GFR AFRICAN-AMERICAN > 60; GFR NON-AFRICAN AMERICAN > 60
--- NOTE | 2017-12-03 11:21 | CP.PCM.PN ---
Subjective - Date & Time of Evaluation Date of Evaluation: 12/03/17 Time of Evaluation: 11:00 - Subjective Subjective: No fever this am though temp 99 still with persistent leukocytosis + chills + dysuria lower abd pain no CP no SOB Discussed test results and treatment plan with daughter Full Code Surrogate Decision maker - waleska Coleman Objective - Vital Signs/Intake and Output Vital Signs (last 24 hours): Temp Pulse Resp BP Pulse Ox 99.1 F 76 20 104/64 97 12/03/17 08:07 12/03/17 09:16 12/03/17 08:07 12/03/17 09:16 12/03/17 08:07 - Medications Medications: Current Medications Acetaminophen (Tylenol 325mg Tab) 650 mg PO Q6 PRN PRN Reason: Pain, Mild (1-3) Last Admin: 12/02/17 19:32 Dose: 650 mg Acetaminophen (Tylenol 325mg Tab) 650 mg PO Q6 PRN PRN Reason: Fever >100.4 F Finasteride (Proscar) 5 mg PO DAILY [facility] Last Admin: 12/03/17 09:16 Dose: 5 mg Ceftriaxone Sodium 1 gm/ (Dextrose) 100 mls @ 100 mls/hr IVPB DAILY DERICK PRN Reason: Protocol Last Admin: 12/03/17 09:16 Dose: 100 mls/hr Meropenem 1 gm/ Sodium (Chloride) 100 mls @ 100 mls/hr IVPB Q8 DERICK PRN Reason: Protocol Last Admin: 12/03/17 09:13 Dose: 100 mls/hr Metoprolol Tartrate (Lopressor) 25 mg PO DAILY [facility] Last Admin: 12/03/17 09:16 Dose: 25 mg Phenazopyridine HCl (Pyridium) 100 mg PO TID [facility] Stop: 12/03/17 17:01 Last Admin: 12/03/17 09:16 Dose: 100 mg Tamsulosin HCl (Flomax) 0.4 mg PO BID [facility] Last Admin: 12/03/17 09:17 Dose: 0.4 mg Tramadol HCl (Ultram) 50 mg PO Q6 PRN PRN Reason: Pain, moderate (4-7) Last Admin: 12/03/17 09:19 Dose: 50 mg - Labs Labs: 12/03/17 05:25 12/03/17 05:25 PT 10.9 Seconds (9.8-13.1) 12/01/17 22:50 INR 1.0 (0.9-1.2) 12/01/17 22:50 APTT 30.8 Seconds (25.6-37.1) 12/01/17 22:50 - Constitutional Appears: No Acute Distress - Head Exam Head Exam: ATRAUMATIC, NORMAL INSPECTION, NORMOCEPHALIC - Eye Exam Eye Exam: EOMI, Normal appearance Pupil Exam: NORMAL ACCOMODATION - ENT Exam ENT Exam: Mucous Membranes Moist, Normal External Ear Exam - Neck Exam Neck Exam: Full ROM. absent: Meningismus - Respiratory Exam Respiratory Exam: NORMAL BREATHING PATTERN. absent: Respiratory Distress - Cardiovascular Exam Cardiovascular Exam: REGULAR RHYTHM, +S1, +S2 Additional comments: left AICD - GI/Abdominal Exam GI & Abdominal Exam: Soft, Tenderness (lower abd tenderness, mild), Normal Bowel Sounds - Extremities Exam Extremities Exam: Full ROM, Normal Capillary Refill. absent: Calf Tenderness, Pedal Edema - Back Exam Back Exam: Full ROM. absent: CVA tenderness (L), CVA tenderness (R) - Neurological Exam Neurological Exam: Alert, Awake, CN II-XII Intact, Normal Gait, Oriented x3 Neuro motor strength exam: Left Upper Extremity: 5, Right Upper Extremity: 5, Left Lower Extremity: 5, Right Lower Extremity: 5 - Psychiatric Exam Psychiatric exam: Normal Affect, Normal Mood - Skin Skin Exam: Dry, Normal Color, Warm Assessment and Plan (1) Sepsis Status: Acute (2) Urinary tract infection Status: Acute (3) Brugada syndrome Status: Chronic (4) Prostatic enlargement Status: Chronic (5) DVT prophylaxis Status: Acute - Assessment and Plan (Free Text) Assessment: This is a 67 y/o male with BPH with Hx of recurrent prostatitis and UTIs who comes in with dysuria and fever. Per patient symptoms started 2 weeks ago. He experienced urinary hesitancy and frequency and nocturia. These symptoms worsened to burning and hematuria. He also noted tactile fever with chills. (1) Sepsis sec to UTI and possible Prostatitis hx of previous Prostatitis fever resolved however WBC Ct went further up for 14k to 18k Initially started on IV Ceftriaxone Consulted ID - Dr Silverio and he rec change IV abx to IV Meropenem , given that pt had previous hx of ESBL E coli Urine c/s : Gram neg rods Blood c/s : pending (3) Hx Brugada syndrome s/p AICD placement Status: Chronic we had dx pt on previous admission and referred him to [facility] - now with AICD stable and asymptomatic at present (3) Prostatic enlargement Status: Chronic cont Flomax and Proscar ff up with Dr Brasher as outpt (5) DVT prophylaxis Status: Acute Lovenox
--- NOTE | 2017-12-03 18:09 | CP.PCM.PN ---
Subjective - Date & Time of Evaluation Date of Evaluation: 12/03/17 Time of Evaluation: 18:00 - Subjective Subjective: I D NOTE WBC :is still 18 cultures (urine)grew gram neg rods but ID & S NOT AVAILABLE YET HAVE ADDED ADDITIONAL GRAM(-) COVERAGE c TOBRAMYCIN Objective - Vital Signs/Intake and Output Vital Signs (last 24 hours): Temp Pulse Resp BP Pulse Ox 97.9 F 74 18 100/61 95 12/03/17 16:01 12/03/17 16:01 12/03/17 16:01 12/03/17 16:01 12/03/17 16:01 - Medications Medications: Current Medications Acetaminophen (Tylenol 325mg Tab) 650 mg PO Q6 PRN PRN Reason: Pain, Mild (1-3) Last Admin: 12/03/17 13:18 Dose: 650 mg Acetaminophen (Tylenol 325mg Tab) 650 mg PO Q6 PRN PRN Reason: Fever >100.4 F Enoxaparin Sodium (Lovenox) 40 mg SC DAILY [facility] PRN Reason: Protocol Finasteride (Proscar) 5 mg PO DAILY [facility] Last Admin: 12/03/17 09:16 Dose: 5 mg Meropenem 1 gm/ Sodium (Chloride) 100 mls @ 100 mls/hr IVPB Q8 DERICK PRN Reason: Protocol Last Admin: 12/03/17 17:27 Dose: 100 mls/hr Tobramycin Sulfate 60 mg/ (Sodium Chloride) 101.5 mls @ 100 mls/hr IV Q12 DERICK PRN Reason: Protocol Metoprolol Tartrate (Lopressor) 25 mg PO DAILY [facility] Last Admin: 12/03/17 09:16 Dose: 25 mg Tamsulosin HCl (Flomax) 0.4 mg PO BID [facility] Last Admin: 12/03/17 17:26 Dose: 0.4 mg Tramadol HCl (Ultram) 50 mg PO Q6 PRN PRN Reason: Pain, moderate (4-7) Last Admin: 12/03/17 09:19 Dose: 50 mg - Labs Labs: 12/03/17 05:25 12/03/17 05:25 PT 10.9 Seconds (9.8-13.1) 12/01/17 22:50 INR 1.0 (0.9-1.2) 12/01/17 22:50 APTT 30.8 Seconds (25.6-37.1) 12/01/17 22:50
[2017-12-03] MEDS: Tobramycin inj 60 MG in Sodium Chloride 0.9% 100 ML IV SCH (21:23)
[2017-12-04] MEDS: Meropenem 1 GM in Sodium Chloride 0.9% 100 ML IVPB SCH ×2 (01:02→08:32)
[2017-12-04 06:49] LABS: BLOOD UREA NITROGEN 12 mg/dl (9-20); CALCIUM 8.9 mg/dL (8.4-10.2); GFR AFRICAN-AMERICAN > 60; GFR NON-AFRICAN AMERICAN > 60
[2017-12-04 06:50] LABS: BASO % 0.5 % (0.0-2.0); EOS # 0.1 K/uL (0.0-0.7); EOS % 0.9 % (0.0-4.0); LYMPH # 1.3 K/uL (1.0-4.3); LYMPH % 14.4 % (20.0-40.0); MEAN CORPUSCULAR HEMOGLOBIN 33.3 pg (27.0-31.0); MEAN CORPUSCULAR HGB CONC 35.1 g/dL (33.0-37.0); MEAN PLATELET VOLUME 10.2 fl (7.2-11.7); MONO # 0.7 K/uL (0.0-0.8); MONO % 7.4 % (0.0-10.0); NEUT # 7.1 K/uL (1.8-7.0); NEUT % 76.8 % (50.0-75.0); NRBC % 0.1 % (0.0-0.0); RBC 4.2 Mil/uL (4.40-5.90); RED CELL DISTRIBUTION WIDTH 12.9 % (11.5-14.5); WHITE BLOOD COUNT 9.3 K/uL (4.8-10.8)
[2017-12-04] MEDS: Enoxaparin 40 mg Syringe SC SCH (08:32)
--- NOTE | 2017-12-04 08:32 | CP.PCM.PN ---
Subjective - Date & Time of Evaluation Date of Evaluation: 12/04/17 Time of Evaluation: 08:32 - Subjective Subjective: no complaints at this time, feeling improved HD stable, nad Objective - Vital Signs/Intake and Output Vital Signs (last 24 hours): Temp Pulse Resp BP Pulse Ox 98.8 F 73 20 112/68 98 12/04/17 07:51 12/04/17 07:51 12/04/17 07:51 12/04/17 07:51 12/04/17 07:51 GENERAL APPEARANCE: Well developed, well nourished, alert and cooperative, and appears to be in no acute distress. HEENT: normocephalic, atraumatic PERRL, EOMI. Vision is grossly intact. External auditory canals clear, hearing grossly intact. No nasal discharge. Oral cavity and pharynx normal. No inflammation, swelling, exudate, or lesions. NECK: Neck supple, non-tender without lymphadenopathy, masses or thyromegaly. CARDIAC: Normal S1 and S2. No S3, S4 or murmurs. Rhythm is regular. LUNGS: Clear to auscultation and percussion without rales, rhonchi, wheezing or diminished breath sounds. ABDOMEN: Positive bowel sounds. Soft, nondistended, nontender. No guarding or rebound. No masses. BACK: Examination of the spine reveals no spinal deformity, symmetry of spinal muscles, EXTREMITIES: No significant deformity or joint abnormality. No edema. NEUROLOGICAL: Strength and sensation symmetric and intact throughout. Reflexes 2 + throughout. SKIN: Skin normal color, texture and turgor with no lesions or eruptions. PSYCHIATRIC: The patient was oriented to person, place, and time. Normal affect. Intake and Output: 12/04/17 12/04/17 06:59 18:59 Intake Total 200 Output Total 450 Balance -250 - Medications Medications: Current Medications Acetaminophen (Tylenol 325mg Tab) 650 mg PO Q6 PRN PRN Reason: Pain, Mild (1-3) Last Admin: 12/03/17 13:18 Dose: 650 mg Acetaminophen (Tylenol 325mg Tab) 650 mg PO Q6 PRN PRN Reason: Fever >100.4 F Enoxaparin Sodium (Lovenox) 40 mg SC DAILY [facility] PRN Reason: Protocol Finasteride (Proscar) 5 mg PO DAILY [facility] Last Admin: 03/22/18 09:16 Dose: 5 mg Meropenem 1 gm/ Sodium (Chloride) 100 mls @ 100 mls/hr IVPB Q8 DERICK PRN Reason: Protocol Last Admin: 12/04/17 01:02 Dose: 100 mls/hr Tobramycin Sulfate 60 mg/ (Sodium Chloride) 101.5 mls @ 100 mls/hr IV Q12 DERICK PRN Reason: Protocol Last Admin: 12/03/17 21:23 Dose: 100 mls/hr Metoprolol Tartrate (Lopressor) 25 mg PO DAILY [facility] Last Admin: 12/03/17 09:16 Dose: 25 mg Tamsulosin HCl (Flomax) 0.4 mg PO BID [facility] Last Admin: 12/03/17 17:26 Dose: 0.4 mg Tramadol HCl (Ultram) 50 mg PO Q6 PRN PRN Reason: Pain, moderate (4-7) Last Admin: 12/04/17 06:27 Dose: 50 mg - Labs Labs: 12/04/17 05:35 12/04/17 05:35 PT 10.9 Seconds (9.8-13.1) 12/01/17 22:50 INR 1.0 (0.9-1.2) 12/01/17 22:50 APTT 30.8 Seconds (25.6-37.1) 12/01/17 22:50 Assessment and Plan - Assessment and Plan (Free Text) Plan: Assessment: This is a 67 y/o male with BPH with Hx of recurrent prostatitis and UTIs who comes in with dysuria and fever. Per patient symptoms started 2 weeks ago. He experienced urinary hesitancy and frequency and nocturia. These symptoms worsened to burning and hematuria. He also noted tactile fever with chills. (1) Sepsis sec to UTI and possible Prostatitis hx of previous Prostatitis fever resolved , WBC resolved Initially started on IV Ceftriaxone Consulted ID - Dr Silverio and he rec change IV abx to IV Meropenem , given that pt had previous hx of ESBL E coli Urine c/s : ECOLI sensitive to CIPRO Blood c/s : neg (3) Hx Brugada syndrome s/p AICD placement Status: Chronic we had dx pt on previous admission and referred him to [facility] - now with AICD stable and asymptomatic at present (3) Prostatic enlargement Status: Chronic cont Flomax and Proscar ff up with Dr Brasher as outpt (5) DVT prophylaxis Status: Acute Lovenox
[2017-12-04] MEDS: Tobramycin inj 60 MG in Sodium Chloride 0.9% 100 ML IV SCH (10:05)
[2017-12-04] MEDS: Ciprofloxacin 400mg/200ml D5W 400 MG/200 ML BAG IVPB SCH (21:13)
[2017-12-05 07:22] LABS: HEMOGLOBIN 14.5 g/dL (12.0-18.0); MEAN CELL VOLUME 95.1 fl (80.0-94.0); MEAN CORPUSCULAR HEMOGLOBIN 33.3 pg (27.0-31.0); RBC 4.35 Mil/uL (4.40-5.90); RED CELL DISTRIBUTION WIDTH 12.8 % (11.5-14.5); WHITE BLOOD COUNT 5.2 K/uL (4.8-10.8)
[2017-12-05 07:36] VITALS: BP 136/82; PULSE 84; RESP 20; TEMP 98; O2SAT 95
[2017-12-05 07:36] LABS: BLOOD UREA NITROGEN 13 mg/dl (9-20); CALCIUM 9.1 mg/dL (8.4-10.2); GFR AFRICAN-AMERICAN > 60; GFR NON-AFRICAN AMERICAN > 60
[2017-12-05] MEDS: Enoxaparin 40 mg Syringe SC SCH (08:27)
[2017-12-05] MEDS: Ciprofloxacin 400mg/200ml D5W 400 MG/200 ML BAG IVPB SCH (08:37)
--- NOTE | 2017-12-05 10:55 | CP.PCM.DIS ---
Provider - Provider Date of Admission: 12/02/17 00:41 Attending physician: Han Smart MD Primary care physician: Yady Dunaway MD Time Spent in preparation of Discharge (in minutes): 30 Diagnosis - Discharge Diagnosis (1) Acute prostatitis Status: Acute Hospital Course - Lab Results Lab Results: Micro Results 12/01/17 23:15 Blood Blood Culture - Preliminary NO GROWTH AFTER 3 DAYS 12/01/17 22:50 Blood Blood Culture - Preliminary NO GROWTH AFTER 3 DAYS 12/01/17 22:50 Urine Urine Culture - Final Escherichia Coli Most Recent Lab Values WBC 5.2 K/uL (4.8-10.8) 12/05/17 05:10 RBC 4.35 Mil/uL (4.40-5.90) L 12/05/17 05:10 Hgb 14.5 g/dL (12.0-18.0) 12/05/17 05:10 Hct 41.4 % (35.0-51.0) 12/05/17 05:10 MCV 95.1 fl (80.0-94.0) H 12/05/17 05:10 MCH 33.3 pg (27.0-31.0) H 12/05/17 05:10 MCHC 35.0 g/dL (33.0-37.0) 12/05/17 05:10 RDW 12.8 % (11.5-14.5) 12/05/17 05:10 Plt Count 174 K/uL (130-400) 12/05/17 05:10 MPV 10.2 fl (7.2-11.7) 12/04/17 05:35 Neut % (Auto) 76.8 % (50.0-75.0) H 12/04/17 05:35 Lymph % (Auto) 14.4 % (20.0-40.0) L 12/04/17 05:35 [place] % (Auto) 7.4 % (0.0-10.0) 12/04/17 05:35 Eos % (Auto) 0.9 % (0.0-4.0) 12/04/17 05:35 Baso % (Auto) 0.5 % (0.0-2.0) 12/04/17 05:35 Neut # (Auto) 7.1 K/uL (1.8-7.0) H 12/04/17 05:35 Lymph # (Auto) 1.3 K/uL (1.0-4.3) 12/04/17 05:35 [place] # (Auto) 0.7 K/uL (0.0-0.8) 12/04/17 05:35 Eos # (Auto) 0.1 K/uL (0.0-0.7) 12/04/17 05:35 Baso # (Auto) 0.0 K/uL (0.0-0.2) 12/04/17 05:35 Neutrophils % (Manual) 86 % (42-75) H 12/01/17 23:35 Band Neutrophils % 4 % (0-2) H 12/01/17 23:35 Lymphocytes % (Manual) 5 % (20-50) L 12/01/17 23:35 Monocytes % (Manual) 5 % (0-10) 12/01/17 23:35 Platelet Estimate Normal (NORMAL) 12/01/17 23:35 Anisocytosis (manual) Slight 12/01/17 23:35 PT 10.9 Seconds (9.8-13.1) 12/01/17 22:50 INR 1.0 (0.9-1.2) 12/01/17 22:50 APTT 30.8 Seconds (25.6-37.1) 12/01/17 22:50 pO2 37 mm/Hg (30-55) 12/01/17 22:56 VBG pH 7.41 (7.32-7.43) 12/01/17 22:56 VBG pCO2 42 mmHg (40-60) 12/01/17 22:56 VBG HCO3 25.5 mmol/L 12/01/17 22:56 VBG Total CO2 27.9 mmol/L (22-28) 12/01/17 22:56 VBG O2 Sat (Calc) 76.6 % (40-65) H 12/01/17 22:56 VBG Base Excess 1.7 mmol/L (0.0-2.0) 12/01/17 22:56 VBG Potassium 3.4 mmol/L (3.6-5.2) L 12/01/17 22:56 Sodium 137.0 mmol/L (132-148) 12/01/17 22:56 Chloride 105.0 mmol/L (98-107) 12/01/17 22:56 Glucose 117 mg/dL (75-110) H 12/01/17 22:56 Lactate 1.2 mmol/L (0.7-2.1) 12/01/17 22:56 FiO2 21.0 % 12/01/17 22:56 Sodium 140 mmol/l (132-148) 12/05/17 05:10 Potassium 4.1 MMOL/L (3.6-5.0) 12/05/17 05:10 Chloride 102 mmol/L (98-107) 12/05/17 05:10 Carbon Dioxide 26 mmol/L (22-30) 12/05/17 05:10 Anion Gap 16 (10-20) 12/05/17 05:10 BUN 13 mg/dl (9-20) 12/05/17 05:10 Creatinine 0.7 mg/dl (0.8-1.5) L 12/05/17 05:10 Est GFR ( Amer) > 60 12/05/17 05:10 Est GFR (Non-Af Amer) > 60 12/05/17 05:10 Random Glucose 149 mg/dL (75-110) H 12/05/17 05:10 Calcium 9.1 mg/dL (8.4-10.2) 12/05/17 05:10 Phosphorus 3.4 mg/dl (2.5-4.5) 12/01/17 22:50 Magnesium 2.1 MG/DL (1.6-2.3) 12/01/17 22:50 Total Bilirubin 0.7 mg/dl (0.2-1.3) 12/01/17 22:50 AST 25 U/L (17-59) 12/01/17 22:50 ALT 38 U/L (21-72) 12/01/17 22:50 Alkaline Phosphatase 81 U/L (38-126) 12/01/17 22:50 Total Protein 7.2 G/DL (6.3-8.2) 12/01/17 22:50 Albumin 4.1 g/dL (3.5-5.0) 12/01/17 22:50 Globulin 3.1 gm/dL (2.2-3.9) 12/01/17 22:50 Albumin/Globulin Ratio 1.3 (1.0-2.1) 12/01/17 22:50 Venous Blood Potassium 3.4 mmol/L (3.6-5.2) L 12/01/17 22:56 Urine Color Dark yellow (YELLOW) 12/01/17 22:50 Urine Clarity Cloudy (Clear) 12/01/17 22:50 Urine pH 7.0 (5.0-8.0) 12/01/17 22:50 Ur Specific Levels 1.020 (1.003-1.030) 12/01/17 22:50 Urine Protein 30 mg/dL (NEGATIVE) 12/01/17 22:50 Urine Glucose (UA) 50 mg/dL (Normal) 12/01/17 22:50 Urine Ketones Negative mg/dL (NEGATIVE) 12/01/17 22:50 Urine Blood Moderate (NEGATIVE) 12/01/17 22:50 Urine Nitrate Positive (NEGATIVE) H 12/01/17 22:50 Urine Bilirubin Negative (NEGATIVE) 12/01/17 22:50 Urine Urobilinogen 4.0 mg/dL (0.2-1.0) 12/01/17 22:50 Ur Leukocyte Esterase Large Kevyn/uL (Negative) 12/01/17 22:50 Urine RBC (Auto) 119 /hpf (0-3) H 12/01/17 22:50 Urine WBC Clumps (Auto) Rare /hpf (NONE) H 12/01/17 22:50 Urine Microscopic WBC 344 /hpf (0-5) H 12/01/17 22:50 Ur Squamous Epith Cells 1 /hpf (0-5) 12/01/17 22:50 Urine Bacteria Occ (<OCC) H 12/01/17 22:50 - Hospital Course Hospital Course: 67 y/o male with BPH with Hx of recurrent prostatitis and UTIs who comes in with dysuria and fever. Per patient symptoms started 2 weeks ago. He experienced urinary hesitancy and frequency and nocturia. These symptoms worsened to burning and hematuria. He also noted tactile fever with chills. (1) Sepsis sec to UTI and possible Prostatitis hx of previous Prostatitis fever resolved , WBC resolved Initially started on IV Ceftriaxone Consulted BRADY - Dr Silverio and he rec change IV abx to IV Meropenem , given that pt had previous hx of ESBL E coli Urine c/s : ECOLI sensitive to CIPRO Blood c/s : neg - Patient switched over to PO Cipro for 7 more days, now asymptomatic, stable for dc follow up with PCP in ONE WEEK. (3) Hx Brugada syndrome s/p AICD placement Status: Chronic we had dx pt on previous admission and referred him to [facility] - now with AICD stable and asymptomatic at present (3) Prostatic enlargement Status: Chronic cont Flomax and Proscar ff up with Dr Brasher as outpt (5) DVT prophylaxis Status: Acute Lovenox Discharge Exam - Head Exam Additional comments: Vitals Reviewed GEN: WDWN, alert, cooperative HEENT: NCAT, PERRL, EOMI HEART: RRR, +S1S2, NO MRG LUNG: CTAB, NO WRR ABD: soft, NT, ND, No HSM, No masses EXT: normal pedal pulses, normal capillary refill NEURO: awake, alert, no focal deficits SKIN: warm, dry PSYCH: normal mood, normal affect Discharge Plan - Discharge Medications Prescriptions: Ciprofloxacin HCl [Cipro] 500 mg PO Q12 #14 tablet Finasteride [Proscar] 5 mg PO DAILY #30 tab Metoprolol Tartrate [Lopressor] 50 mg PO Q12 #60 tab Tamsulosin [Flomax] 0.4 mg PO BID #60 cap - Follow Up Plan Condition: FAIR Disposition: HOME/ ROUTINE Instructions: Dysuria, Adult (DC) Additional Instructions: FOLLOW UP PRIMARY CARE DOCTOR IN ONE WEEK Referrals: Yady Dunaway [Primary Care Provider] -
== END 2017-12-05 12:03 | disposition home or self-care (01) | DRG 901 ==
LOC: H.ER 21:52 → H.ERHOLD 12-02 00:41 → OBSVTOIN 12-02 00:41 → H.MEDSURG1 12-02 02:58
PROVIDERS: ADMIT Internal Medicine; ATTEND Internal Medicine
PROC: 3E0234Z Introduction of Serum, Toxoid and Vaccine into Muscle, Percutaneous Approach (ICD-10-PCS; principal; 2017-12-02)
DX: A41.9 Sepsis, unspecified organism (principal); N39.0 Urinary tract infection, site not specified; N13.8 Other obstructive and reflux uropathy; N41.0 Acute prostatitis; B96.20 Unspecified Escherichia coli [E. coli] as the cause of diseases classified elsewhere; I10 Essential (primary) hypertension; Z95.810 Presence of automatic (implantable) cardiac defibrillator; E78.00 Pure hypercholesterolemia, unspecified; Z23 Encounter for immunization; I49.8 Other specified cardiac arrhythmias; M06.9 Rheumatoid arthritis, unspecified; N40.1 Benign prostatic hyperplasia with lower urinary tract symptoms; Z87.440 Personal history of urinary (tract) infections; K29.70 Gastritis, unspecified, without bleeding; M19.90 Unspecified osteoarthritis, unspecified site; R39.11 Hesitancy of micturition

== ENCOUNTER 2018-02-19 10:50 | Emergency (ER) | payer OTHER ==
[2018-02-19 11:02] VITALS: BMI 29.0
[2018-02-19] MEDS ORDERED: Iohexol 240 (50 ml) PO ONE (11:35)
[2018-02-19] MEDS ORDERED: Sodium Chloride 0.9% 500 ML IV STA (11:35)
--- NOTE | 2018-02-19 11:39 | ED PDOC ---
HPI: Male Pain Time Seen by Provider: 02/19/18 11:15 Chief Complaint (Nursing): Male Genitourinary Chief Complaint (Provider): Dysuria History Per: Patient History/Exam Limitations: no limitations Onset/Duration Of Symptoms: Days (1 week) Current Symptoms Are (Timing): Still Present Additional Complaint(s): Pt. with prostate infection hx. Here with with dysuria, urgency on urination. Low back pain with suprapubic pain. No numbness, tingles, weakness, incontinence, constipation. No fever. No cough, chest pain, dyspnea. Sees Dr. Brasher. Has had some type of surgery for prostate a long time ago. Past Medical History Reviewed: Nursing Documentation, Vital Signs Vital Signs: Last Vital Signs Temp 98.6 F 02/19/18 11:01 Pulse 76 02/19/18 11:01 Resp 20 02/19/18 11:01 BP 119/73 02/19/18 11:01 Pulse Ox 97 02/19/18 11:01 - Medical History PMH: Arthritis, Cardia Arrhythmia, Gastritis, HTN, Hypercholesterolemia, Rheumatoid Arthritis Denies: HIV, Malignancy (denies prostate ca), Chronic Kidney Disease - Surgical History Surgical History: Cholecystectomy Other surgeries: prostate surgery - Family History Family History: States: Unknown Family Hx - Living Arrangements Living Arrangements: With Family - Social History Alcohol: None Drugs: Denies - Home Medications Home Medications: Ambulatory Orders Medication Instructions Recorded Ciprofloxacin HCl [Cipro] 500 mg PO Q12 #14 tablet 12/05/17 Finasteride [Proscar] 5 mg PO DAILY #30 tab 12/05/17 Metoprolol Tartrate [Lopressor] 50 mg PO Q12 #60 tab 12/05/17 Tamsulosin [Flomax] 0.4 mg PO BID #60 cap 12/05/17 - Allergies Allergies/Adverse Reactions: Allergies Allergy/AdvReac Type Severity Reaction Status Date / Time No Known Allergies Allergy Verified 10/01/14 13:25 Review of Systems ROS Statement: Except As Marked, All Systems Reviewed And Found Negative Gastrointestinal: Positive for: Abdominal Pain Genitourinary Male: Positive for: Dysuria. Negative for: Penile Discharge, Penile Pain Neurological: Negative for: Weakness Physical Exam - Reviewed Nursing Documentation Reviewed: Yes Vital Signs Reviewed: Yes - Physical Exam Appears: Positive for: Non-toxic, No Acute Distress Head Exam: Positive for: ATRAUMATIC, NORMAL INSPECTION, NORMOCEPHALIC Skin: Positive for: Normal Color, Warm, DRY Eye Exam: Positive for: EOMI, Normal appearance, PERRL ENT: Positive for: Normal ENT Inspection Neck: Positive for: Normal, Painless ROM Cardiovascular/Chest: Positive for: Regular Rate, Rhythm Respiratory: Positive for: CNT, Normal Breath Sounds Gastrointestinal/Abdominal: Positive for: Soft, Tenderness (suprapubic) Back: Positive for: Normal Inspection. Negative for: L CVA Tenderness, R CVA Tenderness Extremity: Positive for: Normal ROM. Negative for: Tenderness, Pedal Edema Neurologic/Psych: Positive for: Alert, Oriented - Laboratory Results Result Diagrams: 02/19/18 12:23 02/19/18 12:23 Interpretation Of Abn Labs: 24 bun - ECG O2 Sat by Pulse Oximetry: 97 Pulse Ox Interpretation: Normal - Progress ED Course And Treament: 1517: Stable. Dr. Wilkins to fu on ct. Disposition - Clinical Impression Clinical Impression: Abdominal pain - Patient ED Disposition Is Patient to be Admitted: Transfer of Care - Disposition Disposition Time: 15:18 Condition: FAIR Patient Signed Over To: Eboni Wilkins
[2018-02-19] MEDS ORDERED: Iohexol 240 (50 ml) ONE (12:01)
[2018-02-19 12:09] LABS: VENOUS BLOOD GAS BASE EXCESS 2.2 mmol/L (0.0-2.0); VENOUS BLOOD GAS PCO2 49 mmHg (40-60); VENOUS BLOOD GAS PO2 28 mm/Hg (30-55); VENOUS BLOOD PH 7.37 (7.32-7.43)
[2018-02-19 12:38] LABS: BASO # 0.1 K/uL (0.0-0.2); BASO % 0.8 % (0.0-2.0); EOS # 0.1 K/uL (0.0-0.7); EOS % 0.6 % (0.0-4.0); HEMOGLOBIN 14.6 g/dL (12.0-18.0); LYMPH # 0.8 K/uL (1.0-4.3); LYMPH % 8.4 % (20.0-40.0); MEAN CELL VOLUME 95.2 fl (80.0-94.0); MEAN CORPUSCULAR HEMOGLOBIN 33.6 pg (27.0-31.0); MEAN CORPUSCULAR HGB CONC 35.2 g/dL (33.0-37.0); MEAN PLATELET VOLUME 9.9 fl (7.2-11.7); MONO # 0.5 K/uL (0.0-0.8); MONO % 5.5 % (0.0-10.0); NEUT % 84.7 % (50.0-75.0); NRBC % 0.1 % (0.0-0.0); PLATELET COUNT 156 K/uL (130-400); RBC 4.35 Mil/uL (4.40-5.90); WHITE BLOOD COUNT 9.4 K/uL (4.8-10.8)
[2018-02-19 12:42] LABS: ALB/GLOB RATIO 1.4 (1.0-2.1); ALT/SGPT 41 U/L (21-72); AST/SGOT 28 U/L (17-59); BLOOD UREA NITROGEN 24 mg/dl (9-20); CALCIUM 9.2 mg/dL (8.4-10.2); GFR AFRICAN-AMERICAN > 60; GFR NON-AFRICAN AMERICAN > 60
[2018-02-19 13:33] LABS: BANDS 8 % (0-2); BASOPHIL 1 % (0-2); EOSINOPHIL 1 % (0-7); LYMPHOCYTE 10 % (20-50); MONOCYTE 6 % (0-10); NEUTROPHIL 74 % (42-75); PLATELET ESTIMATE NORMAL (NORMAL); TOTAL CELLS COUNTED 100
[2018-02-19 13:34] LABS: LARGE PLATELETS PRESENT
[2018-02-19] MEDS ORDERED: Iohexol 300 100 ML IJ ONE (14:34)
[2018-02-19] MEDS ORDERED: Sodium Chloride 0.9% 50 ML IV ONE (14:34)
--- NOTE | 2018-02-19 15:08 | ED PDOC ---
- Laboratory Results Result Diagrams: 02/19/18 12:23 02/19/18 12:23 - ECG O2 Sat by Pulse Oximetry: 97 Medical Decision Making Medical Decision Makin:[address] Kauffman pending ER workup, reassessment, and final ER disposition. Accession No. : [id number] Patient Name / ID : MALIA THOMAS / [id number] Exam Date : 02/19/2018 14:34:51 ( Addendum_Approved ) Study Comment : Sex / Age : M / 67Y Creator : Samy Tian MD Dictator : Samy Tian MD Fish Checker : Orthopaedic Physician Assistant : Samy Tian MD Approver2 : Report Date : 02/19/2018 15:09:27 My Comment : ADDENDUM: Total exam DLP = 495.79 mGy-cm. [ Addendum Report Added by Samy Tian MD at 02/19/2018 15:12:51 ] PROCEDURE: CT Abdomen and Pelvis with contrast HISTORY: abd pain COMPARISON: Abdomen pelvis CT without contrast 04/20/2017. TECHNIQUE: Contrast dose: Omnipaque 300, 95 cc Radiation dose: Total exam DLP = mGy-cm. This CT exam was performed using one or more of the following dose reduction techniques: Automated exposure control, adjustment of the mA and/or kV according to patient size, and/or use of iterative reconstruction technique. FINDINGS: LOWER THORAX: Limited bibasilar dependent atelectasis identified as well as a small hiatal hernia once again. Pacemaker/ AICD lead again seen at the right heart. LIVER: Diminished attenuation throughout the liver indicates diffuse hepatic steatosis. No mass or prominent intrahepatic biliary dilatation is appreciated. GALLBLADDER AND BILE DUCTS: Prior cholecystectomy again evident. Proximal common duct measures upper limits normal caliber 6.5 mm without radiodense choledocholithiasis appreciated. PANCREAS: No definite pancreatic cyst or solid mass identified pancreatic duct is identified without significant dilatation. SPLEEN: Unremarkable. ADRENALS: Unremarkable. No mass. KIDNEYS AND URETERS: No obstructive uropathy bilaterally. There a few tiny lucencies scattered at the upper and mid pole right and upper pole left kidney regions which too small to characterize. No radiodense urolithiasis or perinephric fluid collection/ reaction evident. VASCULATURE: Unremarkable. No aortic aneurysm. BOWEL: Stomach appears unremarkable exclusive of the small hiatal hernia. There is no bowel obstruction or mesenteric edema related to bowel. Moderate fecal loading is seen throughout the colon. Extensive sigmoid diverticulosis is appreciate without definite diverticulitis pattern APPENDIX: Normal appendix. PERITONEUM: Unremarkable. No free fluid. No free air. LYMPH NODES: Unremarkable. No enlarged lymph nodes. BLADDER: Unremarkable. REPRODUCTIVE: Mild prostate gland enlargement reiterated. BONES: Scoliotic lumbar spinal deformity reiterated. OTHER FINDINGS: None. IMPRESSION: 1. No definite acute abdominal or pelvic findings as discussed above. 2. Hepatic steatosis. 3. A few tiny hepatic lucencies are appreciated well under 1 cm size, too small to characterize. 4. Extensive sigmoid diverticulosis without diverticulitis. 5. Mild prostate gland enlargement again evident. Generally stable appearing abdomen and pelvis CT examination . Labs d/w UTI. DW pt and family findings and plan of care. Scribe Attestation: Documented by Michi Melo, acting as a scribe for Eboni Wilkins MD. Provider Scribe Attestation: All medical record entries made by the Scribe were at my direction and personally dictated by me. I have reviewed the chart and agree that the record accurately reflects my personal performance of the history, physical exam, medical decision making, and the department course for this patient. I have also personally directed, reviewed, and agree with the discharge instructions and disposition. Disposition Counseled Patient/Family Regarding: Studies Performed, Diagnosis, Need For Followup, Rx Given - Clinical Impression Clinical Impression: Urinary tract infection - POA Present On Arrival: None - Disposition Referrals: [facility] [Outside] - 02/22/18 ([facility]) Disposition: Routine/Home Disposition Time: 16:30 Condition: STABLE Prescriptions: Ciprofloxacin [Cipro] 1 tab PO BID #14 tab Phenazopyridine [Phenazopyridine HCl] 200 mg PO Q12 PRN #20 tab PRN Reason: Dysuria Instructions: Urinary Tract Infections in Adults Print Language: LIBERIAN
[2018-02-19 16:32] LABS: SQUAMOUS EPITHIAL 2 /hpf (0-5); URINE BACTERIA RARE (<OCC); URINE BILIRUBIN NEGATIVE (NEGATIVE); URINE BLOOD NEGATIVE (NEGATIVE); URINE CLARITY CLEAR (Clear); URINE COLOR AMBER (YELLOW); URINE GLUCOSE (UA) 150 mg/dL (Normal); URINE LEUKOCYTE ESTERASE NEG Leu/uL (Negative); URINE PROTEIN NEGATIVE (NEGATIVE)
[2018-02-19 17:56] VITALS: BP 136/78; PULSE 78; RESP 19; TEMP 97; O2SAT 98
== END 2018-02-19 17:56 | disposition home or self-care (01) ==
LOC: H.ER 10:50
DX: N39.0 Urinary tract infection, site not specified (principal); E78.00 Pure hypercholesterolemia, unspecified; I10 Essential (primary) hypertension; K57.30 Diverticulosis of large intestine without perforation or abscess without bleeding; M06.9 Rheumatoid arthritis, unspecified; N41.9 Inflammatory disease of prostate, unspecified; K76.0 Fatty (change of) liver, not elsewhere classified
CPT/HCPCS: 74177; 80053; 81003; 82803; 85025; 87040; 87086; 96374; 99283; J1885; J7040; Q9966; Q9967

== ENCOUNTER 2018-12-26 08:52 | Emergency (ER) | payer OTHER ==
[2018-12-26 09:01] VITALS: BMI 26.8
[2018-12-26] MEDS ORDERED: Sodium Chloride 0.9% 1,000 ML IV STA (09:28)
[2018-12-26] MEDS ORDERED: methylPREDNISolone 125 MG in Sodium Chloride 0.9% 50 ML IV STA (09:30)
--- NOTE | 2018-12-26 09:38 | ED PDOC ---
HPI: Allergic Reaction Time Seen by Provider: 12/26/18 09:08 Chief Complaint (Nursing): Allergic Reaction Chief Complaint (Provider): Allergic Reaction History Per: Patient, Family History/Exam Limitations: no limitations Onset/Duration Of Symptoms: Hrs Current Symptoms Are (Timing): Better Context: Other ( took amox) Possible Cause: Medication Associated Symptoms: Skin Rash, Trouble Swallowing, Itching Home/EMS Treatment: Other (took ) Severity: Mild Additional Complaint(s): Pt. is a 68 y/o male who reports to ED for presumed allergic reaction. Pt. reports mild sorethroat started this am so he [facility]. Pt. reports 40 mins. after taking the abx he developed diffuse skin itching and redness as well as lip and tongue swelling and difficulty swallowing and breathing, (+) wheezing. Pt. took an Yumiko-D and the tongue and lip swelling improved and dyspnea resolved. Pt. reports the itching has improved but not resolved. He denies cp or difficulty breathing at present.s Past Medical History Vital Signs: Last Vital Signs Temp 95.5 F L 12/26/18 09:01 Pulse 81 12/26/18 09:01 Resp 20 12/26/18 09:01 BP 99/65 L 12/26/18 09:01 Pulse Ox 96 12/26/18 09:01 JONATAN Report Viewed: Yes - Medical History PMH: Arthritis, Cardia Arrhythmia (has defibrillator), Gastritis, HTN, Hypercholesterolemia, Rheumatoid Arthritis Denies: HIV, Malignancy (denies prostate ca), Chronic Kidney Disease - Surgical History Surgical History: Cholecystectomy - Family History Family History: States: Unknown Family Hx - Immunization History Hx Tetanus Toxoid Vaccination: No Hx Influenza Vaccination: No Hx Pneumococcal Vaccination: No - Home Medications Home Medications: Ambulatory Orders Medication Instructions Recorded Ciprofloxacin HCl [Cipro] 500 mg PO Q12 #14 tablet 12/05/17 Finasteride [Proscar] 5 mg PO DAILY #30 tab 12/05/17 Metoprolol Tartrate [Lopressor] 50 mg PO Q12 #60 tab 12/05/17 Tamsulosin [Flomax] 0.4 mg PO BID #60 cap 12/05/17 Ciprofloxacin [Cipro] 1 tab PO BID #14 tab 02/19/18 Phenazopyridine [Phenazopyridine 200 mg PO Q12 PRN #20 tab 02/19/18 HCl] Tamsulosin [Flomax] 0.4 mg PO DAILY #30 cap 02/19/18 predniSONE [predniSONE Tab] 40 mg PO DAILY #6 tab 12/26/18 - Allergies Allergies/Adverse Reactions: Allergies Allergy/AdvReac Type Severity Reaction Status Date / Time amoxicillin AdvReac Severe WHEEZING Verified 12/26/18 09:32 Review of Systems Constitutional: Negative for: Fever, Chills ENT: Positive for: Throat Pain Cardiovascular: Negative for: Chest Pain, Palpitations, Light Headedness Respiratory: Positive for: Wheezing Gastrointestinal: Negative for: Nausea, Vomiting, Abdominal Pain Skin: Positive for: Rash Physical Exam - Reviewed Vital Signs Reviewed: Yes - Physical Exam Appears: Positive for: Well, Non-toxic Head Exam: Positive for: ATRAUMATIC Skin: Positive for: Warm, Dry, Rash (diffuse erythema to extremities, chest, abdomen and back) Eye Exam: Positive for: Normal appearance. Negative for: Periorbital swelling, Conjunctival injection ENT: Positive for: Normal ENT Inspection ((-) tongue or lip swelling, (-) uvula swelling, (+) uvula midline), Pharynx Is (normal, (-) erythema, (-) exudate). Negative for: Nasal Congestion Neck: Positive for: Normal, Painless ROM, Supple Cardiovascular/Chest: Positive for: Regular Rate, Rhythm. Negative for: Tachycardia Respiratory: Positive for: Normal Breath Sounds. Negative for: Wheezing, Respiratory Distress Gastrointestinal/Abdominal: Positive for: Normal Exam, Soft. Negative for: Tenderness Neurological/Psych: Positive for: Awake, Alert, Oriented - ECG O2 Sat by Pulse Oximetry: 96 Disposition - Clinical Impression Clinical Impression: Allergic reaction - Patient ED Disposition Is Patient to be Admitted: No - Disposition Disposition: Routine/Home Disposition Time: 11:28 Condition: STABLE Additional Instructions: follow up with your PMD tomorrow. Continue with benadryl (1-2 pills every 6-8 hrs.). Return to ED sooner if symptoms return or any difficulty breathing or swallowing. Prescriptions: predniSONE [predniSONE Tab] 40 mg PO DAILY #6 tab Instructions: Drug Allergy Forms: [employer] (Montenegrin) Print Language: HUNGARIAN Medical Decision Making Medical Decision Making: IV access established IV NS given IV solumedrol PO benadryl IV Pepcid Pt. observed x 1.5 hrs. Reassessment, pt. feeling much better, erythema resolved, no further itching. Pt. denies any lip/tongue swelling. Discharge exam, lungs clear, tolerating po, no distress. Repeat vitals stable. Strep is negative, discontinue amox
[2018-12-26 11:16] VITALS: BP 113/79; PULSE 73; RESP 16
[2018-12-26 11:17] VITALS: TEMP 98.1
[2018-12-26 11:30] VITALS: O2SAT 96
== END 2018-12-26 11:53 | disposition home or self-care (01) ==
LOC: H.ER 08:52
DX: T78.40XA Allergy, unspecified, initial encounter (principal); E78.00 Pure hypercholesterolemia, unspecified; I10 Essential (primary) hypertension; Z88.0 Allergy status to penicillin
CPT/HCPCS: 87070; 87430; 96361; 96374; 96375; 99283; J2930; J7030